=== PATIENT | female | born 1945 | race American Indian/Alaskan Native ===

== ENCOUNTER 2018-01-02 19:03 | Emergency (ER) | payer BC, MEDICARE ==
[2018-01-02 20:40] LABS: Hematocrit 41.1 % (30.3-42.9); Hemoglobin 13.4 gm/dl (10.1-14.3); Mean Corpuscular HGB Conc 33 % (30-34); Mean Corpuscular Hemoglobin 29 pg (28-32); Mean Corpuscular Volume 88 fl (79-97); Red Blood Count 4.69 M/mm3 (3.65-5.03); Red Cell Distribution Width 14.3 % (13.2-15.2)
[2018-01-02 20:41] LABS: Platelet Count 249 K/mm3 (140-440)
[2018-01-02 20:56] LABS: BUN/Creatinine Ratio 21; Blood Urea Nitrogen 15 mg/dL (7-17); Hemolysis Index 7
[2018-01-02] MEDS ORDERED: TYLENOL #3 PO ONE (22:00)
--- NOTE | 2018-01-02 22:05 | XRay Report ---
FINAL REPORT EXAM: XR CHEST ROUTINE 2V HISTORY: productive cough/fever TECHNIQUE: PA and lateral views of the chest Comparison: None FINDINGS: There is prominence of the interstitial markings in both lungs with peribronchial thickening, acute versus chronic. In the proper clinical setting bronchiolitis would need to be considered. There is no definite evidence of focal infiltrate and no evidence of pneumothorax or pleural fluid collection. The cardiac silhouette is upper limits of normal size. The thoracic aorta is tortuous. The bony structures are notable for dextrocurvature of the upper thoracic spine, levocurvature of the lower thoracic spine and retained hardware in the visualized portion of the lumbar spine. There is degenerative change of the right glenohumeral joint. IMPRESSION: 1. Prominence of the interstitial markings with peribronchial thickening, acute versus chronic. In the proper clinical setting bronchiolitis would need to be considered. 2. Scoliosis thoracic spine, retained hardware lumbar spine and degenerative change right glenohumeral joint..
--- NOTE | 2018-01-02 22:08 | Emergency Department Report ---
ED Fever HPI - General Chief Complaint: Upper Respiratory Infection Stated Complaint: FEVER/BODY PAIN Time Seen by Provider: 01/02/18 21:52 - History of Present Illness Initial Comments: Ms. Bansal is a fairly healthy 73 yo female with hx of HTN and tobacco abuse who presents with flulike symptoms since Sunday. She has productive cough. She has nausea vomiting diarrhea. Sore throat. Diffuse body aches. Subjective fever. Positive chills. She has appt on Sunday with PCP Dr. Lily Padron Fever Severity/Quality: subjective Associated Symptoms: abdominal pain, cough, nausea/vomiting, sore throat ED Review of Systems ROS: Stated complaint: FEVER/BODY PAIN Other details as noted in HPI Comment: All other systems reviewed and negative Constitutional: chills, fever, malaise ENT: throat pain Gastrointestinal: abdominal pain, nausea, vomiting, diarrhea ED Past Medical Hx - Past Medical History Hx Hypertension: Yes (FOR 29 YRS, DR. PADRON- PCP) Hx Arthritis: Yes (RA) Hx HIV: No - Surgical History Hx Breast Surgery: Yes (LEFT BREAST BX 06/2015) Additional Surgical History: back pain - Social History Smoking Status: Current Every Day Smoker Substance Use Type: None - Medications Home Medications: Home Medications Medication Instructions Recorded Confirmed Last Taken Type Estradiol 1 tab PO DAILY 12/30/13 07/29/15 07/27/15 History Hydroxychloroquine [Plaquenil] 1 tab PO DAILY 12/30/13 08/11/15 08/10/15 10:00 History Levothyroxine [Synthroid] 1 tab PO DAILY 12/30/13 08/11/15 08/10/15 10:00 History NIFEdipine [NIFEdipine ER] 1 tab PO DAILY 12/30/13 08/11/15 08/10/15 10:00 History Pregabalin [Lyrica] 1 cap PO QHS 12/30/13 08/11/15 08/10/15 22:30 History raNITIdine HCl [Zantac 300 MG TAB] 300 tab PO DAILY 12/30/13 08/11/15 08/10/15 10:00 History Lactobacillus Combination No.8 1 each PO QDAY 07/29/15 08/11/15 08/10/15 10:00 History [Adult Probiotic] Meloxicam 15 mg PO QDAY 07/29/15 08/11/15 08/10/15 10:00 History Omeprazole [PriLOSEC] 20 mg PO QDAY 07/29/15 08/11/15 08/10/15 10:00 History oxyCODONE /ACETAMINOPHEN [Percocet 1 tab PO Q12HR PRN 07/29/15 08/11/15 20:00 History 5/325] Ibuprofen [Motrin 800 MG tab] 800 mg PO Q8HR PRN #30 tablet 08/11/15 Unknown Rx Benzonatate [Tessalon Perles] 100 mg PO Q8HR PRN #15 capsule 01/02/18 Unknown Rx levoFLOXacin [Levaquin] 500 mg PO DAILY 7 Days #7 tablet 01/02/18 Unknown Rx ED Physical Exam - General Limitations: No Limitations General appearance: alert, in no apparent distress - Head Head exam: Present: atraumatic, normocephalic - Eye Eye exam: Present: normal appearance - ENT ENT exam: Present: mucous membranes moist - Neck Neck exam: Present: normal inspection. Absent: tenderness, meningismus - Respiratory Respiratory exam: Present: normal lung sounds bilaterally. Absent: respiratory distress, wheezes, rales, rhonchi - Cardiovascular Cardiovascular Exam: Present: regular rate, normal rhythm, normal heart sounds. Absent: bradycardia, tachycardia, systolic murmur, diastolic murmur, rubs, gallop - GI/Abdominal GI/Abdominal exam: Present: soft, normal bowel sounds. Absent: distended, tenderness, guarding, rebound - Extremities Exam Extremities exam: Present: normal inspection - Back Exam Back exam: Present: normal inspection - Neurological Exam Neurological exam: Present: alert, oriented X3 - Psychiatric Psychiatric exam: Present: normal affect, normal mood - Skin Skin exam: Present: warm, dry, intact, normal color. Absent: rash ED Course Vital Signs 01/02/18 01/02/18 19:45 21:58 Temperature 99.3 F 98.4 F Pulse Rate 87 86 Respiratory 18 18 Rate Blood Pressure 140/87 Blood Pressure 164/89 [Left] O2 Sat by Pulse 99 100 Oximetry ED Medical Decision Making - Lab Data Result diagrams: 01/02/18 20:23 01/02/18 20:23 Laboratory Results - last 24 hr 01/02/18 01/02/18 01/02/18 20:03 20:23 20:23 WBC 9.1 RBC 4.69 Hgb 13.4 Hct 41.1 MCV 88 MCH 29 MCHC 33 RDW 14.3 Plt Count 249 Sodium 140 Potassium 3.6 Chloride 101.3 Carbon Dioxide 24 Anion Gap 18 BUN 15 Creatinine 0.7 Estimated GFR > 60 BUN/Creatinine Ratio 21 Glucose 106 H Calcium 9.0 Influenza A (Rapid) Negative Influenza B (Rapid) Negative Vital Signs - 24 hr 01/02/18 01/02/18 19:45 21:58 Temperature 99.3 F 98.4 F Pulse Rate 87 86 Respiratory 18 18 Rate Blood Pressure 140/87 Blood Pressure 164/89 [Left] O2 Sat by Pulse 99 100 Oximetry - Radiology Data Radiology results: image reviewed interpreted by me: Interstitial scarring, no pneumothorax, no infiltrate normal heart size - Medical Decision Making Mrs. Bansal to healthy female who presents with flulike symptoms due to tobacco abuse, patient will benefit from antibiotics. Prescribed Tessalon Perles and Levaquin. Critical care attestation.: If time is entered above; I have spent that time in minutes in the direct care of this critically ill patient, excluding procedure time. ED Disposition Clinical Impression: Flu-like symptoms, Acute bronchitis Disposition: DC-01 TO HOME OR SELFCARE Is pt being admited?: No Does the pt Need Aspirin: No Condition: Stable Instructions: Acute Bronchitis (ED) Prescriptions: Benzonatate [Tessalon Perles] 100 mg PO Q8HR PRN #15 capsule PRN Reason: Cough levoFLOXacin [Levaquin] 500 mg PO DAILY 7 Days #7 tablet Referrals: PRIMARY CARE, [Primary Care Provider] - [facility] Time of Disposition: 22:06
[2018-01-02] MEDS ORDERED: ZOFRAN ODT PO ONE (22:13)
[2018-01-02] MEDS ORDERED: LEVAQUIN PO ONE (22:32)
[2018-01-02] MEDS ORDERED: LOMOTIL PO ONE (22:32)
[2018-01-02] MEDS ORDERED: NACL 0.9% 1000 ML 1,000 ML ONE (22:40)
[2018-01-02] MEDS ORDERED: NACL 0.9% 1000 ML 1,000 ML IV ONE (22:45)
[2018-01-03 00:08] VITALS: BP 151/77
== END 2018-01-03 00:46 | disposition home or self-care (01) ==
LOC: ED 19:03
DX: J20.9 Acute bronchitis, unspecified (principal); I10 Essential (primary) hypertension; M19.90 Unspecified osteoarthritis, unspecified site; F17.200 Nicotine dependence, unspecified, uncomplicated; Z88.6 Allergy status to analgesic agent
CPT/HCPCS: 36415; 71046; 80048; 85027; 87400; 96360; 99284; J7030; Q0162

== ENCOUNTER 2020-08-11 13:14 | Outpatient (CLI) | payer BC ==
--- NOTE | 2020-08-12 10:38 | Mammography Report ---
DIGITAL SCREENING MAMMOGRAM WITH TOMOSYNTHESIS WITH CAD, 08/12/2020 CLINICAL INFORMATION / INDICATION: Routine Screening Mammography. TECHNIQUE: Digital bilateral 2D and 3D mammography with tomosynthesis was obtained in the craniocaud al and mediolateral oblique projections. Computer-Aided Detection (CAD) analysis was used for interp retation of this study. COMPARISON: 08/13/2019, 07/23/2019, 07/15/2018 FINDINGS: Breast Density: The breasts are heterogeneously dense, which may obscure small masses. No dominant mass, suspicious calcifications, or architectural distortion in either breast. Scarring is noted along the upper outer left breast. A biopsy clip is again seen posteriorly along th e 9:00 position of the right breast. IMPRESSION: No mammographic evidence of malignancy. Follow up recommendation: Routine yearly BI-RADS Category 2: Benign. A "normal" or negative report should not discourage follow up or biopsy of a clinically significant f inding. A written summary of these findings will be mailed to the patient. The patient will be entered into a mammography reporting system which will generate a reminder letter for the patient's next appointmen t at the appropriate interval. [employer] recommends yearly mammograms starting at age 40 and continuing as l darryl as a woman is in good health. Breast MRI is recommended for women with an approximate 20-25% or greater lifetime risk of breast cancer, including women with a strong family history of breast or ova mary cancer or who have been treated for Hodgkin's disease. Signer Name: Abhishek Martínez MD Signed: 08/12/2020 10:33 AM Workstation Name: [id number]
== END 2020-08-11 13:15 | disposition home or self-care (01) ==
LOC: SPVWC 13:14
PROVIDERS: ATTEND Surgery
DX: Z12.31 Encounter for screening mammogram for malignant neoplasm of breast (principal)
CPT/HCPCS: 77063; 77067